=== PATIENT | female | born 1990 | race African-American/Black ===

== ENCOUNTER 2022-12-31 05:10 | Emergency (ER) | payer MEDICAID, OTHER ==
[~2022-12-31] VITALS: Ht 167.6 cm; Wt 72.0 kg
[2022-12-31 05:21] VITALS: BP 127/91; PULSE 103; RESP 16; TEMP 98.6; O2SAT 98
[2022-12-31] MEDS ORDERED: IBUPROFEN 600MG TABLET PO ONE (06:45)
== END 2022-12-31 07:25 | disposition left against medical advice (07) ==
LOC: ER 05:10
DX: M79.652 Pain in left thigh (principal)
CPT/HCPCS: 99282

== ENCOUNTER 2025-03-23 16:40 | Emergency (ER) | payer SELFPAY ==
[~2025-03-23] VITALS: Ht 167.6 cm; Wt 73.0 kg
[2025-03-23 16:46] VITALS: O2SAT 100
[2025-03-23] MEDS: LIDOCAINE HCL 1% 20ML VIAL INFIL ONE (17:39)
[2025-03-23] MEDS: KETOROLAC 15MG/ML VIAL IM ONE (17:39)
[2025-03-23] MEDS ORDERED: TRANEXAMIC ACID 1,000MG/10ML IV ONE (18:00)
[2025-03-23] MEDS: TRANEXAMIC ACID 1000MG PREMIX 100 ML IV SCH (18:29)
[2025-03-23] MEDS ORDERED: CEPH500T MT (18:50)
[2025-03-23] MEDS: BACITRACIN ZINC OINT UDPKT TOP ONE (19:02)
[2025-03-23 19:10] VITALS: BP 130/70; PULSE 80; RESP 15; TEMP 36.7; O2SAT 99
== END 2025-03-23 19:10 | disposition home or self-care (01) ==
LOC: ER 16:40
DX: S61.210A Laceration without foreign body of right index finger without damage to nail, initial encounter (principal)
CPT/HCPCS: 73120; 12001; 96365; 96372; 99284; J1885; J2003; Z7610 ×3; 96366